=== PATIENT | female | born 1935 | race Caucasian/White ===

== ENCOUNTER 2017-07-16 06:20 | Day surgery (SDC) | payer MEDICARE ==
[2017-07-15 12:05] VITALS: BMI 29.0
[~2017-07-16 06:20] MED LIST: Cyclopentolate 1% Opth Drop 2 ML BOT FS SCH; EPINEPHrine 0.3 MG in Ophthalmic Irrigation Solution 500 ML FS SCH; Phenylephrine 2.5% Ophth Soln 5 ML BOT FS SCH
[2017-07-16] MEDS ORDERED: Phenylephrine 2.5% Ophth Soln 5 ML BOT ONE (06:57)
[2017-07-16] MEDS ORDERED: Cyclopentolate 1% Opth Drop 2 ML BOT ONE (06:57)
[2017-07-16] MEDS ORDERED: Diprivan 20 ML ONE (08:18)
[2017-07-16] MEDS ORDERED: Midazolam HCl 2 mg/2 ml Vial ONE (08:18)
--- NOTE | 2017-07-16 10:19 | OP ---
DATE OF PROCEDURE: 07/16/2017 PREOPERATIVE DIAGNOSIS: Glaucoma, right eye. POSTOPERATIVE DIAGNOSIS: Glaucoma, right eye. PROCEDURE: Pars plana vitrectomy, tube shunt, scleral patch graft, right eye. SURGEON: Dr. Sherman Artis ANESTHESIA: Local with monitored anesthesia care. COMPLICATIONS: None. PROCEDURE IN DETAIL: The patient was identified in the preoperative holding area. Appropriate conse nt for planned surgical procedure on the right eye had been obtained, the patient was transported to the operative suite where appropriate cardiopulmonary monitoring established. Local anesthesia was o btained using retrobulbar and modified Van Lint lid block using 50/50 mixture of 4% lidocaine and 0.7 5% bupivacaine. The patient was prepped and draped in the usual sterile manner for ophthalmic surger y on the right eye. Lid speculum was placed in the right eye. Pc7 tube shunt was placed superior te mporally fixated to the sclera using 5-0 mersilene suture. Tube was introduced through the sclera th rough a sclerotomy 4 mm posterior to the limbus superiorly temporally. Trocars were placed and a cor e vitrectomy was performed. Posterior hyaloid face was elevated and trimmed into the retinal periphe ry. Indirect ophthalmoscopy was used to examine the retina periphery. No holes, breaks or tears wer e identified. Prophylactic laser was placed behind the sclerotomy sites. Scleral patch graft Tutopl ast graft was placed fixated in place with 7-0 Vicryl suture. Conjunctiva was closed with 6-0 plain gut suture. Retrobulbar Kenalog and subconjunctival Ancef were placed. Atropine and antibiotic oint ment were placed, and the eye was patched and shielded. The patient was taken to the postoperative r ecovery unit in good condition having suffered no immediate perioperative complications. DISCHARGE INSTRUCTIONS: The patient was instructed to keep patch and shield on, avoid lifting or quinton ding, and follow up in the morning with Dr. Artis.
== END 2017-07-16 10:35 | disposition home or self-care (01) ==
LOC: SDC 06:20
PROVIDERS: ATTEND Ophthalmology Retina Specialist
PROC: 08T43ZZ Resection of Right Vitreous, Percutaneous Approach (ICD-10-PCS; principal; 2017-07-16)
PROC: 08H Eye, Insertion (ICD-10-PCS; 2017-07-16)
DX: H40.9 Unspecified glaucoma (principal); I10 Essential (primary) hypertension; E78.5 Hyperlipidemia, unspecified; E11.9 Type 2 diabetes mellitus without complications; M19.90 Unspecified osteoarthritis, unspecified site; Z79.4 Long term (current) use of insulin; Z79.899 Other long term (current) drug therapy; Z96.1 Presence of intraocular lens
CPT/HCPCS: 36416; J0171; J2250; J2704

== ENCOUNTER 2017-11-09 11:53 | Emergency (ER) | payer MEDICARE ==
--- NOTE | 2017-11-09 14:55 | RAD ---
2 VIEWS LEFT HIP: Date: 11/09/17 COMPARISON: None. HISTORY: Left leg pain. FINDINGS: Two views of left hip show hardware in the proximal aspect of the left femur. No perihardware lucency is identified. No degenerative changes seen in the left hip. IMPRESSION: Postsurgical changes of the left hip without acute osseous abnormality. POS: [facility]REAL
== END 2017-11-09 15:08 | disposition home or self-care (01) ==
LOC: ERS 11:53
DX: M25.552 Pain in left hip (principal)